=== PATIENT | male | born 2000 | race Asian ===

== ENCOUNTER 2024-03-08 17:15 | Emergency (ER) | payer OTHER ==
[~2024-03-08] VITALS: Ht 172.7 cm; Wt 74.6 kg
[2024-03-08 20:20] VITALS: BP 127/70; TEMP 96.2; O2SAT 98
== END 2024-03-08 20:29 | disposition home or self-care (01) ==
LOC: M ED 17:15
DX: J06.9 Acute upper respiratory infection, unspecified (principal); H10.32 Unspecified acute conjunctivitis, left eye; Z91.048 Other nonmedicinal substance allergy status